=== PATIENT | male | born 1950 | race Hispanic/Latino ===

== ENCOUNTER → 2022-08-09 | Outpatient (CLI) | payer OTHER ==
[~2022-08-09] MED LIST: GADOTERATE MEGLUMINE 10 MMOL/20 ML VIAL IV ONE
== END | disposition home or self-care (01) ==
LOC: RAH 13:46
PROVIDERS: ATTEND Internal Medicine
DX: I70.248 Atherosclerosis of native arteries of left leg with ulceration of other part of lower leg (principal); L89.892 Pressure ulcer of other site, stage 2; Z89.512 Acquired absence of left leg below knee
CPT/HCPCS: 73723; A9575